=== PATIENT | male | born 1995 ===

== ENCOUNTER 2018-08-19 03:22 | Inpatient (IN) | payer MEDICAID, OTHER ==
[2018-08-19 03:26] VITALS: BMI 20.5
--- NOTE | 2018-08-19 03:30 | ED PDOC ---
Arrival/HPI - General Time Seen by Provider: 08/19/18 03:23 Historian: Patient, EMS - History of Present Illness Narrative History of Present Illness (Text): 08/19/18 03:25 23 year old male, with a past medical history of fentanyl abuse, presents to the emergency department as a transfer from [facility], for psychiatric admission. Patient informs he has recently stopped using fentanyl which is making him feel depressed and anxious. Patient also informs of severe family issues which are causing him psychiatric distress as well. Patient denies any somatic complaints. Patient denies any fevers, chills, headache, dizziness, chest pain, shortness o f breath, dyspnea on exertion, cough, diaphoresis, abdominal pain, nausea, vomiting, diarrhea, back pain, neck pain, or any other complaint. Time/Duration: Prior to Arrival Symptom Onset: Gradual Symptom Course: Unchanged Activities at Onset: Light Past Medical History - Provider Review Nursing Documentation Reviewed: Yes Family/Social History - Physician Review Nursing Documentation Reviewed: Yes Family/Social History: No Known Family HX Allergies/Home Meds Allergies/Adverse Reactions: Allergies No Known Allergies Allergy (Verified 08/19/18 03:26) Review of Systems - Physician Review All systems were reviewed & negative as marked: Yes - Review of Systems Constitutional: absent: Fevers, Night Sweats Respiratory: absent: SOB, Cough Cardiovascular: absent: Chest Pain, SAUCEDA Gastrointestinal: absent: Abdominal Pain, Diarrhea, Nausea, Vomiting Musculoskeletal: absent: Back Pain, Neck Pain Neurological: absent: Headache, Dizziness Endocrine: absent: Diaphoresis Physical Exam Vital Signs Reviewed: Yes Temperature: Afebrile Blood Pressure: Normal Pulse: Regular Respiratory Rate: Normal Appearance: Positive for: Well-Appearing, Non-Toxic, Comfortable Pain Distress: None Mental Status: Positive for: Alert and Oriented X 3 Medical Decision Making ED Course and Treatment: 08/19/18 03:31 Impression: 23 year old male presents as psychiatric transfer for depression. Plan: -- Psych admit Prior Visits: Notes and results from previous visits were reviewed. Progress Notes: 08/19/18 03:38 Patient is medically cleared for psychiatric admission. Patient to be treated inpatient for severe depression. - Scribe Statement The provider has reviewed the documentation as recorded by the Scribe Rocky Araujo All medical record entries made by the Scribe were at my direction and personally dictated by me. I have reviewed the chart and agree that the record accurately reflects my personal performance of the history, physical exam, medical decision making, and the department course for this patient. I have also personally directed, reviewed, and agree with the discharge instructions and disposition.
[2018-08-19 03:36] VITALS: O2SAT 95
[2018-08-19] MEDS ORDERED: Alum-Mag Hydrox-Simethicone Susp (30 mL) PO PRN (04:35)
[2018-08-19] MEDS ORDERED: Magnesium Hydroxide Susp 30 ml UD PO PRN (04:35)
--- NOTE | 2018-08-19 05:17 | PCM.BM ---
<Herminio Orellana - Last Filed: 08/19/18 05:14> Treatment Plan Problems - Problems identified on initial assessmt Feelings of Worthlessness Date Initiated: 08/19/18 Time Initiated: 05:14 Assessment reference: NA Status: Active Ineffective Coping Date Initiated: 08/19/18 Time Initiated: 05:14 Assessment reference: NA Status: Active Social Isolation Date Initiated: 08/19/18 Time Initiated: 05:15 Assessment reference: NA Status: Active Treatment assets and liabiliti Patient Assests: cooperative, self-reliant, ADL independent, physically healthy, negotiates basic needs, cognitively intact Patient Liabilities: financial problems, poor support system, relationship conflicts, substance abuse - Milieu Protocol Maintain good personal hygiene: daily Encourage regular showers, daily Remind patient to perform daily oral care, daily Assist patient to perform ADL's Conduct patient checks and document Observation sheet: Q15 minutes Maintain personal safety: every shift Educate patient to report safety concerns to staff, every shift Monitor environment for contraband/sharps Medication safety: Monitor for expected outcome, potential side effects: every shift, Assess barriers to learning: every shift, Assess readiness for medication education: every shift Discharge/Continuing Care - Education Needs Education Needs: Patient Medication, Patient Diagnosis/Disease Process, Patient Coping Skills, Patient Anger Management skills, Patient Placement options, Patient Community resources, Patient Nutrition, Patient Health Practices/Safety, Patient Aftercare Safety Plan - Discharge Discharge Criteria: Tolerates medication w/o severe side effects, Free of Suicidal thoughts, Free of agitation, Normal sleep pattern, Ability to care for self, No longer exhibiting s/s of withdrawal, Reduction of target symptoms <Eusebia Santana - Last Filed: 08/19/18 13:20> - Diagnosis (1) MDD (major depressive disorder) Status: Acute Interventions: 08/19/18 13:20 Psychoeducation Psychopharmacology/adjustment of medications as needed/ monitoring possible side effects Evaluate pt on daily basis Compliance with medications and follow up appointments Suicide and homicide risk assessment and prevention Relapse prevention Reduction of symptoms Improve functional status Family involvement As outpatient: cognitive behavioral therapy (2) Opioid use disorder, severe, dependence Status: Acute Interventions: 08/19/18 13:20 Monitoring withdrawal symptoms Medical detoxification Pharmacotherapy for alcohol/benzos/opioid dependence Maintaining sobriety Relapse prevention Possible rehabilitation Motivational interviewing 12-step programs: AA meetings (3) PTSD (post-traumatic stress disorder) Status: Acute Interventions: 08/19/18 13:20 Psychoeducation Psychopharmacology/adjustment of medications as needed/ monitoring possible side effects Evaluate pt on daily basis Discussion of importance of being compliant with medications and follow up appointments Suicide and homicide risk assessment and prevention, coping strategies, safety plan Reduction of symptoms Relaxation techniques and breathing exercises Improve functional status Family involvement Cognitive behavioral therapy as outpatient
[2018-08-19 07:36] LABS: GLUCOSE,FASTING 91 mg/dL (65-110); HDL CHOLESTEROL 26 mg/dL (29-60)
[2018-08-19 07:47] LABS: LDL CHOLESTEROL 68 mg/dL (0-129)
[2018-08-19 07:53] LABS: FREE T4 1.48 ng/dL (0.78-2.19)
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
[2018-08-20] MEDS ORDERED: Multivitamin With Minerals Tab PO SCH (08:00)
[2018-08-20 08:28] LABS: BASO # 0.05 K/mm3 (0.0-2.0); BASO % 0.7 % (0.0-3.0); EOS # 0.2 (0.0-0.7); EOS % 2.3 % (1.5-5.0); HEMOGLOBIN 14.2 g/dL (14.0-18.0); LYMPH # 1.1 (1.2-3.4); LYMPH % 14.2 % (22.0-35.0); MEAN CORPUSCULAR HEMOGLOBIN 28.3 pg (25.0-35.0); MEAN CORPUSCULAR HGB CONC 32.9 g/dl (31.0-37.0); MEAN PLATELET VOLUME 11.3 fl (7.0-11.0); MONO # 0.8 (0.1-0.6); MONO % 10.8 % (1.0-6.0); RBC 5.01 10^6/uL (3.5-6.1); WHITE BLOOD COUNT 7.4 10^3/uL (4.5-11.0)
[2018-08-20 08:52] LABS: ALB/GLOB RATIO 1.3 (1.1-1.8); ALBUMIN 4.4 g/dL (3.0-4.8); ALT/SGPT 21 U/L (7-56); AST/SGOT 27 U/L (17-59); BLOOD UREA NITROGEN 18 mg/dL (7-21); CALCIUM 9.5 mg/dL (8.4-10.5); GFR NON-AFRICAN AMERICAN > 60
--- NOTE | 2018-08-20 09:10 | PCM.PYCHPN ---
Psychiatric Progress Note - Psychiatric Progress Note Patient seen today, length of contact: 25 min Problems Identified/Issues Discussed: I reviewed assessment and recent notes. I met with patient at bedside. He is irritable and disengaged during my introduction though eventually agrees to answ er some questions. He placed a 48 hour notice yesterday and still wants to be discharged by tomorrow. Indicates plan to return to living with his mother and f/u at [facility]. Patient is oriented x3 with acceptable grooming. He is feeling better since admission and indicates that he feels more committed to sobriety than he was in the past. Affect is labile but not angry or hostile. He does not escalate and he is not overtly psychotic. Thought process is coherent without evidence of perceptual disturbance or delusions. Patient denies new pain discomfort or side effects. Staff notes indicate that he has been visible on the unit, appearing labile, anxious and pacing. There were no major behavioral issues overnight. Diagnostic Results: Rule out major depressive disorder Rule out substance-induced mood disorder Rule out PTSD Rule out adjustment disorder opioid use disorder Cannabis abuse Nicotine addiction Medication Change: No Medical Record Reviewed: Yes Mental Status Examination - Cognitive Function Orientation: Person, Place, Situation Attention: WNL Concentration: Poor Association: WNL Fund of Knowledge: WNL - Mood Mood: Depressed (better), Anxious - Affect Affect: Other (labile) - Speech Speech: Appropriate - Formal Thought Process Formal Thought Process: No Impairment, Other (Guarded) - Suicidal Ideation Suicidal Ideation: No - Homicidal Ideation Homicidal Ideation: No Goal/Treatment Plan - Goal/Treatment Plan Progress Toward Problem(s) and Goals/Treatment Plan: * c/w current tx and plan {Clonidine/tramadol/Zofran/symptomatic treatment of opioid withdrawals} * Recent vitals reviewed and noted below: 08/19/18 08/19/18 07:09 15:56 Temperature 97.7 F Pulse Rate 58 L 72 Respiratory 20 Rate Blood Pressure 113/59 L 123/76 * Patient signed 48 hours notice at 03:46 pm on 08/19/18. Patient is robbins and irritable however there are no concerning indications that he may be an acute threat to himself or others. If behavior remains in fair control, he will be discharged AMA on 08/21/18 on his 48 hour notice. * New weekend lab results noted below: Laboratory Results - last 24 hr 08/19/18 08/20/18 08/20/18 07:20 08:15 08:15 WBC 7.4 RBC 5.01 Hgb 14.2 Hct 43.1 MCV 86.0 MCH 28.3 MCHC 32.9 RDW 13.0 Plt Count 264 MPV 11.3 H Neut % (Auto) 72.0 H Lymph % (Auto) 14.2 L [place] % (Auto) 10.8 H Eos % (Auto) 2.3 Baso % (Auto) 0.7 Lymph # (Auto) 1.1 L [place] # (Auto) 0.8 H Eos # (Auto) 0.2 Baso # (Auto) 0.05 Absolute Neuts (auto) 5.32 Sodium 143 Potassium 4.4 Chloride 111 H Carbon Dioxide 23 Anion Gap 13 BUN 18 Creatinine 0.7 L Est GFR ( Amer) > 60 Est GFR (Non-Af Amer) > 60 Random Glucose 106 Calcium 9.5 Phosphorus 3.3 Magnesium 2.0 Total Bilirubin 0.8 AST 27 ALT 21 Alkaline Phosphatase 70 Total Protein 7.8 Albumin 4.4 Globulin 3.4 Albumin/Globulin Ratio 1.3 RPR Nonreactive
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
[2018-08-21 07:16] VITALS: BP 116/75; PULSE 73; RESP 17; TEMP 98.3
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
== END 2018-08-21 10:08 | disposition left against medical advice (07) | DRG 754 ==
LOC: ED 03:22 → ERH 03:28 → PSYC 03:55
PROVIDERS: ADMIT Psychiatry & Neurology Psychiatry; ATTEND Psychiatry & Neurology Psychiatry
DX: F32.9 Major depressive disorder, single episode, unspecified (principal); F11.20 Opioid dependence, uncomplicated; F17.210 Nicotine dependence, cigarettes, uncomplicated; F12.10 Cannabis abuse, uncomplicated; F43.10 Post-traumatic stress disorder, unspecified; R63.6 Underweight; Z68.20 Body mass index [BMI] 20.0-20.9, adult